=== PATIENT | male | born 2000 | race Caucasian/White ===

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

== ENCOUNTER 2021-09-14 19:52 | Emergency (ER) | payer MEDICAID ==
[~2021-09-14] VITALS: Ht 158 cm; Wt 136.1 kg
[~2021-09-14 19:52] MED LIST changes: +AMOX-358 PO
[2021-09-14] MEDS ORDERED: predniSONE 20 MG TAB PO ONE (20:15)
[2021-09-14] MEDS ORDERED: ACYCLOVIR 400 MG TABLET (ZOVIRAX) PO SCH (20:15)
--- NOTE | 2021-09-14 20:15 | ED Neurological Problem ---
General Chief Complaint: Neurological Problems Stated Complaint: FACIAL DROOPING Source: patient, family Exam Limitations: no limitations History of Present Illness Date Seen by Provider: Sep 14, 2021 Time Seen by Provider: 20:09 Initial Comments to ER with reports of right-sided facial drooping first noticed by mother about 15 minutes ago but patient states that he has had some troubles blinking his right eye and noticed that it felt weird starting yesterday. No history of there is no headache no pain no fever no chills. No troubles with the upper extremities or with speech or with lower extremity. He does notice that when he drinks the fluid wants to run out the right side of his mouth. Timing/Duration: other (Progressive over 24 hours) Severity: moderate Associated Symptoms: denies symptoms Allergies and Home Medications Allergies Coded Allergies: Cefaclor (Verified Allergy, Unknown, 11/04/08) Patient Home Medication List Home Medication List Reviewed: Yes Acyclovir (Acyclovir) 400 Mg Tablet, 400 MG PO 5XD Prescribed by: MOHINI BRUSH on 09/14/212017 Prednisone (Prednisone) 10 Mg Tab.ds.pk, 10 MG PO UD Prescribed by: MOHINI BRUSH on 09/14/212017 Discontinued Medications Acetaminophen (Tylenol) 80 Mg/Tab Tablet, 320 MG PO PRN, (Reported) Discontinued Reason: No Longer Taking Entered as Reported by: NIC GOEL on 01/14/11 0507 Last Action: Discontinued Amoxicillin/Potassium Clav (Augmentin 875-125 Tablet) 1 Each Tablet, 1 EACH PO BID Discontinued Reason: No Longer Taking Prescribed by: MOHINI BRUSH on 08/09/16 2459 Last Action: Discontinued Hydrocodone/Chlorphen P-Stirex (Tussionex Pennkinetic Susp) 480 Ml Desiree.er.12h, 5 ML PO Q12H PRN for COUGH/CONGESTION/PAIN Discontinued Reason: No Longer Taking Prescribed by: MAUREEN LEW on 05/09/15 0012 Last Action: Discontinued Review of Systems Review of Systems Constitutional: see HPI Eyes: No Symptoms Reported Ears, Nose, Mouth, Throat: no symptoms reported Respiratory: no symptoms reported Cardiovascular: no symptoms reported Genitourinary: no symptoms reported Musculoskeletal: no symptoms reported Skin: no symptoms reported Psychiatric/Neurological: No Symptoms Reported Endocrine: No Symptoms Reported Past Yaacamj-Fizywd-Qqhqej Hx Immunizations Up To Date PED Vaccines UTD: Yes Seasonal Allergies Seasonal Allergies: No Past Medical History Pneumonia Currently Using CPAP: No Currently Using BIPAP: No Reproductive Disorders: No (MINOR) Adverse Reaction/Blood Tranf: No Physical Exam Vital Signs Vital Signs - First Documented 09/14/21 20:00 Temp 36.5 Pulse 96 Resp 16 B/P (MAP) 144/109 (121) Pulse Ox 18 O2 Delivery Room Air Capillary Refill : Height, Weight, BMI Height: 5'6" Weight: 220lbs. oz. 99.606809ev; 35.51 BMI Method:Stated General Appearance: WD/WN, no apparent distress HEENT: PERRL/EOMI, TMs normal, pharynx normal, other (Right side of his face is flaccid including the forehead. He is unable to raise the right eyebrow or blink the right eye (zyvomatic and frontal branch of facial nerve involvement)) Neck: non-tender, full range of motion Respiratory: no respiratory distress, no accessory muscle use Cardiovascular: regular rate, rhythm, no murmur Gastrointestinal: normal bowel sounds, non tender, soft Neurologic/Psychiatric: alert, normal mood/affect, oriented x 3 Crainal Nerves: normal hearing, normal speech, PERRL Coordination/Gait: normal finger to nose, normal gait Motor/Sensory: no motor deficit (Right facial) Skin: normal color, warm/dry Progress/Results/Core Measures Results/Orders My Orders Orders - MOHINI BRUSH APRN Prednisone Tablet (Deltasone Tablet) (09/14/21 20:15) Acyclovir Capsule/Tablet (Zovirax Caps (09/14/21 20:15) Medications Given in ED Current Medications Medications Dose Ordered Sig/Ferny Route Start Time Stop Time Status Last Admin Dose Admin Prednisone 60 mg ONCE ONCE PO 09/14/21 20:15 09/14/21 20:16 DC 09/14/21 20:22 60 MG Vital Signs/I&O 09/14/21 20:00 Temp 36.5 Pulse 96 Resp 16 B/P (MAP) 144/109 (121) Pulse Ox 18 O2 Delivery Room Air Departure Impression Primary Impression: Banks's palsy Disposition: 01 HOME, SELF-CARE Condition: Stable Departure-Patient Inst. Decision time for Depature: 20:12 Referrals: MATTI EUGENE DO (PCP/Family) Primary Care Physician Patient Instructions: Banks's Palsy (DC) Add. Discharge Instructions: 1. Follow-up with Dr. Eugene later this week. In the meantime take the steroids and antivirals as directed. Return to ER for any concerns. You may find it helpful to tape the eye closed at night because you will have difficulty keeping it closed otherwise and get some [id number] Visine eyedrops to help keep the eye moisturized during the day. All discharge instructions reviewed with patient and/or family. Voiced understanding. Scripts Acyclovir (Acyclovir) 400 Mg Tablet 400 MG PO 5XD, #35 TAB Prov: MOHINI BRUSH APRN 09/14/21 Prednisone (Prednisone) 10 Mg Tab.ds.pk 10 MG PO UD, #54 EA Take 6 tabs(60mg)daily x4 days, then decrease by 1 tab(10mg)every other day. Prov: MOHINI BRUSH APRN 09/14/21 Work/School Note: Work Release Form Date Seen in the Emergency Department: Sep 14, 2021 Return to Work: Sep 17, 2021 MOHINI BRUSH APRN Sep 14, 2021 20:15
[2021-09-14] MEDS ORDERED: PRED10TA22 PO (20:18)
[2021-09-14] MEDS ORDERED: ACYC400T21 PO (20:18)
[2021-09-14 20:27] VITALS: BP 138/117
== END 2021-09-14 20:34 | disposition home or self-care (01) ==
LOC: EDUNIT# 19:52 → ER 19:55
DX: G51.0 Bell's palsy (principal)
CPT/HCPCS: 99283